=== PATIENT | male | born 1995 | race Caucasian/White ===

== ENCOUNTER 2021-07-28 01:43 | Emergency (ER) | payer OTHER ==
[2021-07-28 02:31] VITALS: BP 132/98; PULSE 95; TEMP 98.7; BMI 53.5
[2021-07-28] MEDS ORDERED: LIDOCAINE VISCOUS 2% ORAL/TOP 15 ML UNIT-DOSE CUP MM ONE (02:48)
[2021-07-28] MEDS ORDERED: LIDOCAINE VISCOUS 2% ORAL/TOP 15 ML UNIT-DOSE CUP ONE (02:55)
[2021-07-28] MEDS ORDERED: KETOROLAC TROMETHAMINE 15 MG/ML VIAL IM ONE (03:22)
[2021-07-28] MEDS ORDERED: KETOROLAC TROMETHAMINE 15 MG/ML VIAL ONE (03:25)
== END 2021-07-28 04:47 | disposition home or self-care (01) ==
LOC: JER 01:43
PROC: 3E0233Z Introduction of Anti-inflammatory into Muscle, Percutaneous Approach (ICD-10-PCS; principal; 2021-07-28)
DX: J02.9 Acute pharyngitis, unspecified (principal)
CPT/HCPCS: 0241U-QW; 87070; 99284-25

== ENCOUNTER 2021-08-02 04:19 | Emergency (ER) | payer OTHER ==
[2021-08-02 04:42] VITALS: BP 127/83; PULSE 79; TEMP 98.5; BMI 53.2
[2021-08-02] MEDS ORDERED: IBUPROFEN 600 MG TABLET (FP) PO ONE ×2 (05:12→05:35)
[2021-08-02] MEDS ORDERED: PSEUDOEPHEDRINE HCL 30 MG TABLET PO ONE (05:15)
[2021-08-02] MEDS ORDERED: ALBUTEROL SO4 2.5/IPRATROPIUM 0.5 INH SOL 3 ML VIAL.NEB. NEB ONE ×2 (05:17→05:38)
[2021-08-02] MEDS ORDERED: DEXAMETHASONE 4 MG TABLET (FP) PO ONE (05:25)
[2021-08-02] MEDS ORDERED: DEXAMETHASONE SOD PHOSPHATE 10 MG/1 ML VIAL ONE (05:35)
[2021-08-02] MEDS ORDERED: PSEUDOEPHEDRINE HCL 60 MG TABLET ONE (05:35)
[2021-08-02] MEDS ORDERED: PSEUDOEPHEDRINE HCL 60 MG TABLET PO ONE (05:36)
== END 2021-08-02 06:37 | disposition home or self-care (01) ==
LOC: JER 04:19
PROC: 3E0F7GC Introduction of Other Therapeutic Substance into Respiratory Tract, Via Natural or Artificial Opening (ICD-10-PCS; principal; 2021-08-02)
DX: J20.9 Acute bronchitis, unspecified (principal); H92.03 Otalgia, bilateral
CPT/HCPCS: 82962; 99283-25

== ENCOUNTER 2022-03-16 15:29 | Emergency (ER) | payer OTHER ==
[2022-03-16 15:35] VITALS: BP 158/97; PULSE 83; RESP 20; TEMP 99.2; BMI 54.9
== END 2022-03-16 17:01 | disposition home or self-care (01) ==
LOC: JERFT 15:29
DX: R22.1 Localized swelling, mass and lump, neck (principal)
CPT/HCPCS: 99282-25

== ENCOUNTER 2023-02-21 11:22 | Emergency (ER) | payer OTHER ==
[2023-02-21 11:39] VITALS: BP 162/101; PULSE 90; RESP 18; TEMP 98; BMI 53.2
[2023-02-21] MEDS ORDERED: ACETAMINOPHEN 500 MG TABLET (FP) PO ONE (12:05)
[2023-02-21] MEDS ORDERED: KETOROLAC TROMETHAMINE 30 MG/1 ML VIAL IM ONE (12:09)
[2023-02-21] MEDS ORDERED: ACETAMINOPHEN 500 MG TABLET (FP) ONE (12:13)
[2023-02-21] MEDS ORDERED: KETOROLAC TROMETHAMINE 30 MG/1 ML VIAL ONE (12:13)
== END 2023-02-21 12:38 | disposition home or self-care (01) ==
LOC: JERFT 11:22
PROC: 3E0233Z Introduction of Anti-inflammatory into Muscle, Percutaneous Approach (ICD-10-PCS; principal; 2023-02-21)
DX: H92.03 Otalgia, bilateral (principal); R07.0 Pain in throat; J02.9 Acute pharyngitis, unspecified
CPT/HCPCS: 87651; 99284-25